=== PATIENT | female | born 2000 | race Two or more races ===

== ENCOUNTER 2025-02-16 23:15 | Emergency (ER) | payer SELFPAY ==
[2025-02-16 23:17] VITALS: BMI 25.4
--- NOTE | 2025-02-17 00:34 | PC.NURSE ---
PT INFORMED ME THAT SHE FEELS BETTER AND WILL GO HOME.
== END 2025-02-17 00:35 | disposition left against medical advice (07) ==
LOC: SERX 02-17 00:58
PROVIDERS: Emergency Provider Emergency Medicine
DX: Z53.21 Procedure and treatment not carried out due to patient leaving prior to being seen by health care provider (principal)
CPT/HCPCS: 99283